=== PATIENT | male | born 1970 | race Caucasian/White ===

== ENCOUNTER 2023-08-13 11:22 | Inpatient (IN) | payer OTHER ==
[~2023-08-13] VITALS: Ht 182.9 cm; Wt 95.3 kg
[2023-08-13 11:40] VITALS: BP_SYST 163; PULSE 47; RESP 17; TEMP 96.6; O2SAT 100
[2023-08-13 11:56] LABS: BASOPHILS # (AUTO) 0.1 K/uL (0.0-0.2); BASOPHILS % (AUTO) 1.2 % (0.0-2.0); EOSINOPHILS # (AUTO) 0.1 K/uL (0.0-0.4); EOSINOPHILS % (AUTO) 1.1 % (0.0-4.0); HEMATOCRIT 41.8 % (36-54); LYMPHOCYTES # (AUTO) 1.1 K/uL (1.0-5.5); LYMPHOCYTES % (AUTO) 12.4 % (20.5-51.5); MEAN CORPUSCULAR HEMOGLOBIN 29 pg (27-31); MEAN CORPUSCULAR HGB CONC 33 % (32-36); MEAN CORPUSCULAR VOLUME 86 fL (79.0-98.0); MONOCYTES # (AUTO) 0.3 K/uL (0.0-1.0); NEUTROPHILS % (AUTO) 81.3 % (40.0-70.0); PLATELET COUNT (AUTO) 234 K/uL (130-430); RED BLOOD CELL COUNT(AUTO) 4.88 MIL/uL (4.2-6.2); RED CELL DISTRIBUTION WIDTH 13.2 % (9.0-15.0); WHITE BLOOD COUNT (AUTO) 8.6 K/uL (4.8-10.8)
[2023-08-13 12:08] LABS: ABG O2 SAT% ESTIMATE 98.9 % (94.0-100.0); BLOOD GAS BASE EXCESS -0.6 mmol/L (-3.0-3.0); BLOOD GAS HCO3 19.9 mmol/L (21.0-27.0); BLOOD GAS PCO2 23.4 mmHg (32.0-45.0); BLOOD GAS PO2 126.4 mmHg (75.0-100.0)
[2023-08-13] MEDS: NACL 0.9% 1,000 ML IV ONE ×3 (12:09→14:46)
[2023-08-13 12:16] LABS: ALLEN'S TEST POSITIVE (P); BLOOD GAS PH 7.548 (7.350-7.450)
[2023-08-13 12:17] LABS: ALANINE AMINOTRANSFERASE 24 U/L (12-78); ALBUMIN 4.6 g/dL (3.4-4.8); ANION GAP 10 (5-15); ASPARTATE AMINOTRANSFERASE 13 U/L (10-37); BILIRUBIN,DIRECT 0.2 mg/dL (0.0-0.3); CALCIUM 9.7 mg/dL (8.4-11.0); CARBON DIOXIDE 26 mmol/L (23-29); CHLORIDE 102 mmol/L (98-107); CREATININE 1.09 mg/dL (0.55-1.30); GFR AFRICAN AMERICAN 91 mL/min (>90); GLUCOSE 327 mg/dL (74-106); LIPASE 23 U/L (16-77); POTASSIUM 4.2 mmol/L (3.5-5.1); SODIUM SERUM 138 mmol/L (136-145); TOTAL BILIRUBIN 0.8 mg/dL (0.0-1.0); TOTAL PROTEIN, SERUM 7.6 g/dL (6.4-8.3); UREA NITROGEN, BLOOD 12 mg/dL (8-21)
[2023-08-13 12:25] LABS: GFR NON AFRICAN-AMERICAN 75 mL/min (>90)
[2023-08-13] MEDS: ONDANSETRON HCL 4 MG/2 ML VIAL IVP ONE (12:53)
[2023-08-13] MEDS ORDERED: INSULIN ASPART 100 UNITS/ML, 10 ML VIAL (NovoLOG) SUBCUT PRN (14:15)
[2023-08-13 14:32] LABS: BILIRUBIN,URINE NEGATIVE (NEGATIVE); BLOOD, URINE NEGATIVE (NEGATIVE); CLARITY/URINE CLEAR (CLEAR); COLOR,URINE YELLOW (YELLOW); GLUCOSE,URINE 3+ (NEGATIVE); KETONES,URINE 3+ (NEGATIVE); LEUKOCYTE ESTERASE ,URINE NEGATIVE (NEGATIVE); NITRITE, URINE NEGATIVE (NEGATIVE); PROTEIN URINE NEGATIVE (NEGATIVE); UROBILINOGEN,URINE 0.2 (0.2-1.0)
[2023-08-13 14:32] LABS: CHOLESTEROL 241 mg/dL (<200); HDL CHOLESTEROL 82 mg/dL (>45); TRIGLYCERIDES 76 mg/dL (30-150)
[2023-08-13] MEDS ORDERED: cefTRIAXone 1 GM VIAL ONE ×2 (14:36)
[2023-08-13] MEDS: INSULIN GLARGINE 100 UNITS/ML, 10 ML VIAL SUBCUT ONE (14:46)
[2023-08-13] MEDS: cefTRIAXone 1 GM in D5W 50 ML IV ONE (15:16)
[2023-08-13] MEDS ORDERED: HUM100IN SUBCUT (15:47)
[2023-08-13] MEDS: METOCLOPRAMIDE HCL 10 MG TABLET PO SCH (17:56)
[2023-08-13 18:20] VITALS: BP_SYST 155; PULSE 52; RESP 18; TEMP 97.5; O2SAT 100
[2023-08-13 19:52] VITALS: BP_SYST 141; PULSE 54; RESP 18; TEMP 98.6
[2023-08-13] MEDS: INSULIN GLARGINE 100 UNITS/ML, 10 ML VIAL SUBCUT SCH (21:17)
[2023-08-13] MEDS: INSULIN REGULAR, HUMAN 100 UNITS/ML, 3 ML VIAL (humuLIN R) SUBCUT PRN (22:49)
[2023-08-14] VITALS (7 sets, daily range): BP systolic 101–151; PULSE 61–83; RESP 16–18; TEMP 97.6–98.8; O2SAT 97–100
[2023-08-14 04:36] LABS: BASOPHILS % (AUTO) 0.3 % (0.0-2.0); HEMATOCRIT 39.1 % (36-54); LYMPHOCYTES # (AUTO) 1.1 K/uL (1.0-5.5); LYMPHOCYTES % (AUTO) 8.3 % (20.5-51.5); MEAN CORPUSCULAR HEMOGLOBIN 29 pg (27-31); MEAN CORPUSCULAR HGB CONC 33 % (32-36); MEAN CORPUSCULAR VOLUME 86 fL (79.0-98.0); MONOCYTES # (AUTO) 0.4 K/uL (0.0-1.0); MONOCYTES % (AUTO) 3.4 % (1.7-9.3); NEUTROPHILS # (AUTO) 11.3 K/uL (1.8-7.7); PLATELET COUNT (AUTO) 260 K/uL (130-430); RED BLOOD CELL COUNT(AUTO) 4.56 MIL/uL (4.2-6.2); RED CELL DISTRIBUTION WIDTH 13.5 % (9.0-15.0); WHITE BLOOD COUNT (AUTO) 12.8 K/uL (4.8-10.8)
[2023-08-14 05:00] LABS: CREATININE 1.14 mg/dL (0.55-1.30); POTASSIUM 4.2 mmol/L (3.5-5.1)
[2023-08-14] MEDS ORDERED: cefTRIAXone 1 GM in D5W 50 ML IV SCH (09:00)
[2023-08-14] MEDS: cefTRIAXone 1 GM in D5W 50 ML IV SCH (09:41)
[2023-08-14] MEDS: ONDANSETRON HCL 4 MG/2 ML VIAL IM PRN (14:56)
[2023-08-14] MEDS: INSULIN REGULAR, HUMAN 100 UNITS/ML, 3 ML VIAL SUBCUT SCH (16:55)
[2023-08-14] MEDS ORDERED: INSULIN GLARGINE 100 UNITS/ML, 10 ML VIAL SUBCUT SCH (21:00)
[2023-08-14] MEDS: PANTOPRAZOLE SODIUM 40 MG TAB PO SCH (21:51)
[2023-08-15 00:55] VITALS: BP_SYST 136; PULSE 59; RESP 18; TEMP 98.5; O2SAT 97
[2023-08-15 08:00] VITALS: BP_SYST 131; PULSE 84; RESP 18; TEMP 97.3; O2SAT 99
[2023-08-15] MEDS: INSULIN GLARGINE 100 UNITS/ML, 10 ML VIAL SUBCUT SCH (09:04)
[2023-08-15] MEDS ORDERED: INSULIN REGULAR, HUMAN 10 UNITS/0.1 ML, 3 ML VIAL SUBCUT SCH (11:30)
[2023-08-15 12:27] VITALS: BP_SYST 133; PULSE 62; RESP 17; TEMP 98.1; O2SAT 98
[2023-08-15 16:04] VITALS: BP_SYST 132; PULSE 72; RESP 18; TEMP 97.8; O2SAT 99
[2023-08-15 20:06] VITALS: BP_SYST 132; PULSE 60; RESP 16; TEMP 98; O2SAT 100
[2023-08-15 21:50] VITALS: O2SAT 100
[2023-08-16] VITALS: BP_SYST 123; PULSE 61; RESP 17; TEMP 98.4; O2SAT 98
[2023-08-16] MEDS: D5/0.45 NS 1,000 ML IV SCH (00:26)
[2023-08-16] MEDS: MEPERIDINE 100 MG INJ. 100 MG/ML VIAL ONE (07:59)
[2023-08-16 08:00] VITALS: BP_SYST 145; PULSE 57; RESP 16; TEMP 98.6; O2SAT 100; O2SAT 99
[2023-08-16] MEDS: MIDAZOLAM HCL 5 MG/5 ML VIAL ONE (08:00)
[2023-08-16 08:07] VITALS: BP_SYST 145; PULSE 57; RESP 16; TEMP 98.6; O2SAT 99
[2023-08-16 12:24] VITALS: BP_SYST 134; PULSE 56; RESP 18; TEMP 98.6; O2SAT 98
[2023-08-16 13:18] LABS: BASOPHILS % (AUTO) 0.4 % (0.0-2.0); EOSINOPHILS % (AUTO) 0.2 % (0.0-4.0); HEMATOCRIT 40.2 % (36-54); HEMOGLOBIN 13.5 g/dL (14.0-18.0); LYMPHOCYTES # (AUTO) 1.2 K/uL (1.0-5.5); LYMPHOCYTES % (AUTO) 13.3 % (20.5-51.5); MEAN CORPUSCULAR HEMOGLOBIN 29 pg (27-31); MEAN CORPUSCULAR HGB CONC 34 % (32-36); MEAN CORPUSCULAR VOLUME 85 fL (79.0-98.0); MONOCYTES # (AUTO) 0.6 K/uL (0.0-1.0); MONOCYTES % (AUTO) 6.2 % (1.7-9.3); NEUTROPHILS # (AUTO) 7.2 K/uL (1.8-7.7); NEUTROPHILS % (AUTO) 79.9 % (40.0-70.0); PLATELET COUNT (AUTO) 231 K/uL (130-430); RED BLOOD CELL COUNT(AUTO) 4.72 MIL/uL (4.2-6.2); RED CELL DISTRIBUTION WIDTH 13.2 % (9.0-15.0)
[2023-08-16 13:35] LABS: ALBUMIN 3.5 g/dL (3.4-4.8); CALCIUM 8.6 mg/dL (8.4-11.0); CREATININE 0.96 mg/dL (0.55-1.30); POTASSIUM 4.6 mmol/L (3.5-5.1); TOTAL BILIRUBIN 1.2 mg/dL (0.0-1.0); TOTAL PROTEIN, SERUM 6.1 g/dL (6.4-8.3)
[2023-08-16 17:02] VITALS: BP_SYST 130; PULSE 59; RESP 18; TEMP 98.7; O2SAT 99
[2023-08-16 20:00] VITALS: BP_SYST 147; PULSE 61; RESP 16; TEMP 97.5; O2SAT 98
[2023-08-16] MEDS: METOCLOPRAMIDE HCL 10 MG TABLET PO SCH (20:32)
[2023-08-17] VITALS: BP_SYST 138; PULSE 57; RESP 16; TEMP 98.2; O2SAT 99
[2023-08-17 04:43] LABS: BASOPHILS # (AUTO) 0.1 K/uL (0.0-0.2); BASOPHILS % (AUTO) 0.9 % (0.0-2.0); EOSINOPHILS # (AUTO) 0.1 K/uL (0.0-0.4); EOSINOPHILS % (AUTO) 0.7 % (0.0-4.0); HEMATOCRIT 38.6 % (36-54); HEMOGLOBIN 13.1 g/dL (14.0-18.0); LYMPHOCYTES # (AUTO) 1.4 K/uL (1.0-5.5); LYMPHOCYTES % (AUTO) 18.1 % (20.5-51.5); MEAN CORPUSCULAR HEMOGLOBIN 29 pg (27-31); MEAN CORPUSCULAR HGB CONC 34 % (32-36); MEAN CORPUSCULAR VOLUME 85 fL (79.0-98.0); MONOCYTES # (AUTO) 0.7 K/uL (0.0-1.0); MONOCYTES % (AUTO) 8.9 % (1.7-9.3); NEUTROPHILS # (AUTO) 5.6 K/uL (1.8-7.7); NEUTROPHILS % (AUTO) 71.4 % (40.0-70.0); PLATELET COUNT (AUTO) 236 K/uL (130-430); RED BLOOD CELL COUNT(AUTO) 4.55 MIL/uL (4.2-6.2); RED CELL DISTRIBUTION WIDTH 12.9 % (9.0-15.0); WHITE BLOOD COUNT (AUTO) 7.9 K/uL (4.8-10.8)
[2023-08-17 04:53] LABS: CALCIUM 8.5 mg/dL (8.4-11.0); CREATININE 0.8 mg/dL (0.55-1.30); POTASSIUM 4.1 mmol/L (3.5-5.1)
[2023-08-17 08:00] VITALS: BP_SYST 124; PULSE 59; RESP 16; TEMP 98.6; O2SAT 96
[2023-08-17 12:00] VITALS: BP_SYST 127; PULSE 58; RESP 16; TEMP 98.1; O2SAT 99
[2023-08-17] MEDS ORDERED: INSU100V10 SUBCUT (12:56)
[2023-08-17] MEDS ORDERED: INSU100V9 SUBCUT (12:56)
[2023-08-17] MEDS ORDERED: PRO40 PO (12:56)
[2023-08-17] MEDS ORDERED: METO-290 PO (12:56)
[2023-08-17 15:07] VITALS: BP_SYST 125; PULSE 59; RESP 18; TEMP 98.3; O2SAT 99
== END 2023-08-17 15:35 | disposition home or self-care (01) | DRG 48 ==
LOC: SED 11:22 → STU 14:22 → SMU 08-14 13:20
PROVIDERS: ADMIT Specialist; ATTEND Specialist
DX: E10.43 Type 1 diabetes mellitus with diabetic autonomic (poly)neuropathy (principal); E10.65 Type 1 diabetes mellitus with hyperglycemia; K31.84 Gastroparesis; K52.9 Noninfective gastroenteritis and colitis, unspecified; Z79.4 Long term (current) use of insulin
CPT/HCPCS: 36415; 36600; 76705; 78264; 80048; 80053; 80061; 80076; 81001; 81003; 82803; 82948; 83037; 83690; 84484; 85025; 87040; 93005; 99285; A9541; G0378; J0696; J1815; J2175; J2250; J2405; J7060; J8597